=== PATIENT | female | born 1990 | race Hispanic/Latino ===

== ENCOUNTER 2022-09-26 10:41 | Emergency (ER) | payer OTHER ==
[~2022-09-26] VITALS: Ht 154.9 cm; Wt 76.7 kg
[2022-09-26 10:44] VITALS: BP 135/77
== END 2022-09-26 11:59 | disposition left against medical advice (07) ==
LOC: EDH 10:41
DX: M25.511 Pain in right shoulder (principal); E07.9 Disorder of thyroid, unspecified; V89.2XXA Person injured in unspecified motor-vehicle accident, traffic, initial encounter; Y93.89 Activity, other specified; Y92.89 Other specified places as the place of occurrence of the external cause; Y99.8 Other external cause status